=== PATIENT | female | born 1990 | race Two or more races ===

== ENCOUNTER 2019-02-21 12:52 | Emergency (ER) | payer OTHER ==
[2019-02-21 13:15] VITALS: BP 114/78; PULSE 98; TEMP 98; BMI 25.5
--- NOTE | 2019-02-21 13:55 | PDOC ---
History of Present Illness - General Chief Complaint: Injury Stated Complaint: HEAD INJURY Time Seen by Provider: 02/21/19 13:41 History Source: Patient Exam Limitations: No Limitations - History of Present Illness Initial Comments: 02/21/19 19:31 28 year old female with no significant medical or surgical history presents after striking head on a cabinet at work today. Patient reports no loc, no dizziness after, no nausea or vomiting. States no headache at present. She is requesting a head cat scan. 02/21/19 19:32 Is this a multiple visit Asthma Patient?: No Timing/Duration: 1 hour Severity: mild Modifying Factors: improves with: other (no intervention) Associated Symptoms: denies: headaches, nausea/vomiting, syncope Aspirin Received prior to arrival: Yes: no aspirin today Asa Contraindications(Core Measure): No: Allergy Beta Kimmy Contraindications(Core Measure): Yes: Not Prescribed Beta Kimmy Given by EMS(Core Measure): No Beta Kimmy Taken at Home(Core Measure): No Beta Kimmy Not Indicated at this Time(Core Measure): No Past History - Travel Traveled outside of the country in the last 30 days: No Close contact w/someone who was outside of country & ill: No - Past Medical History Allergies/Adverse Reactions: Allergies Allergy/AdvReac Type Severity Reaction Status Date / Time No Known Allergies Allergy Verified 02/21/19 13:11 COPD: No Other medical history: left knee sx - Psycho Social/Smoking Cessation Hx Smoking History: Former smoker Have you smoked in the past 12 months: No Information on smoking cessation initiated: No Hx Alcohol Use: No Drug/Substance Use Hx: No Review of Systems - Review of Systems Able to Perform ROS?: Yes Is the patient limited Citizen Of [place] proficient: No Constitutional: No: Chills, Fever, Weakness HEENTM: No: Eye Pain, Blurred Vision, Ear Pain, Throat Pain, Throat Swelling Respiratory: No: Orthopnea, Shortness of Breath, Stridor Cardiac (ROS): No: Chest Pain, Lightheadedness, Palpitations, Syncope ABD/GI: No: Constipated, Poor Appetite, Poor Fluid Intake, Indigestion : No: Burning, Dysuria, Incontinence Musculoskeletal: No: Joint Pain, Muscle Pain, Muscle Weakness Integumentary: No: Bruising, Erythema Neurological: No: Headache, Numbness, Tingling Psychiatric: No: Stressors *Physical Exam - Vital Signs Last Vital Signs Temp Pulse Resp BP Pulse Ox 98 F 98 H 16 114/78 100 02/21/19 13:12 02/21/19 13:12 02/21/19 13:12 02/21/19 13:12 02/21/19 13:12 - Physical Exam General Appearance: Yes: Nourished, Appropriately Dressed HEENT: positive: TMs Normal, Pharynx Normal, Other (no lumps felt on head, no laceration or open areas of the scalp) Neck: positive: Supple. negative: Lymphadenopathy (R), Lymphadenopathy (L) Respiratory/Chest: positive: Lungs Clear Cardiovascular: positive: Regular Rhythm, Regular Rate Neurologic: positive: travel administrator II-XII NML intact, Fully Oriented, Alert. negative: Normal Response, Motor Strength 5/5 Medical Decision Making - Medical Decision Making 02/21/19 19:36 28 year old female with no significant medical or surgical history presents after striking head on a cabinet at work today. Patient reports no loc, no dizziness after, no nausea or vomiting. #minor head injury -review post minor head injury instructions with patient, reassurance given -offered analgesia; refused Discharge - Discharge Information Problems reviewed: Yes Clinical Impression/Diagnosis: Minor head injury Qualifiers: Encounter type: initial encounter Qualified Code(s): S09.90XA - Unspecified injury of head, initial encounter Condition: Good Disposition: HOME - Admission No - Follow up/Referral - Patient Discharge Instructions Patient Printed Discharge Instructions: Closed Head Injury Additional Instructions: -Please call primary physician for follow up appointment -May apply ice compress for 20 minutes 3 to 4 times daily -if nausea, vomiting or blurred vision return to the nearest emergency room - Post Discharge Activity Work/Back to School Note: Back to Work
== END 2019-02-21 14:00 | disposition home or self-care (01) ==
LOC: JERFT 12:52
DX: S09.8XXA Other specified injuries of head, initial encounter (principal); W22.09XA Striking against other stationary object, initial encounter; Y93.89 Activity, other specified; Y92.238 Other place in hospital as the place of occurrence of the external cause; Y99.0 Civilian activity done for income or pay
CPT/HCPCS: 99281-25